=== PATIENT | male | born 1975 | race African-American/Black ===

== ENCOUNTER 2018-06-22 14:10 | Emergency (ER) | payer SELFPAY ==
[~2018-06-22] VITALS: Ht 185.4 cm; Wt 181.4 kg
[~2018-06-22 14:10] MED LIST: ACCUNEB0.63 MG/3 INH; BOUDREAUXS113 GM TP; COREG12.5 MG PO; EPOGEN4000 U/ML SQ; K-DUR20 MEQ PO; MAG-OXIDE400 MG PO; NYSTATIN ORAL SU5 ML PO; PEPCID20 MG PO; SALAGEN5 MG PO; SEROQUEL100 MG PO; [UNRECOGNIZED DRUG - OTHER] PO
[2018-06-22 14:19] VITALS: Ht 185.4 cm; Wt 181.4 kg
[2018-06-22 16:17] LABS: BASOPHILS 0.1 % (0-2); EOSINOPHILS 2.3 % (0-7); HEMATOCRIT 37.3 % (42.0-54.0); HEMOGLOBIN 12.1 g/dL (13.5-17.5); IMMATURE GRANULOCYTES 0.1 % (0-5); MCH 28.1 pg (26.0-34.0); MCHC 32.4 g/dL (31.0-37.0); MCV 86.5 fL (80.0-100.0); MEAN PLATELET VOLUME 10.2 fL (7.4-10.4); MONOCYTES 6.9 % (2-11); NEUTROPHILS 64.6 % (40-80); PLATELET COUNT 279 10x3/uL (130-400); RBC 4.31 10x6/uL (4.20-6.10); RDW 12.7 % (11.5-14.5); WBC 7.8 10x3/uL (4.8-10.8)
[2018-06-22 16:37] LABS: ALBUMIN 3.2 g/dL (3.4-5.0); ALKALINE PHOSPHATASE 44 U/L (46-116); ALT (SGPT) 27 U/L (10-68); BILIRUBIN - TOTAL 0.31 mg/dL (0.2-1.3); CALC OSMOLALITY 285 mosm/kg (275-300); CALCIUM 8.7 mg/dL (8.5-10.1); CARBON DIOXIDE 32.5 mmol/L (21.0-32.0); CHLORIDE - SERUM 104 mmol/L (98-107); CREATININE - SERUM 0.9 mg/dL (0.6-1.3); GLUCOSE 85 mg/dL (74-106); POTASSIUM - SERUM 4.4 mmol/L (3.5-5.1); PROTEIN - SERUM 7.9 g/dL (6.4-8.2); SODIUM 143 mmol/L (136-145); UREA NITROGEN 18 mg/dL (7-18); eGFR NON AFRICAN AMERICAN > 90 mL/min (90-120)
[2018-06-22 16:46] LABS: PRO BNP 153 pg/mL (0-125)
[2018-06-22] MEDS ORDERED: MUPIROCIN22 GM TOPICAL (17:32)
[2018-06-22] MEDS ORDERED: LASIX20 MG PO (17:32)
[2018-06-22 18:38] VITALS: BP 163/99
== END 2018-06-22 18:39 | disposition home or self-care (01) ==
LOC: D.ER 14:10
PROVIDERS: Family Medicine
DX: R60.0 Localized edema (principal); Z86.79 Personal history of other diseases of the circulatory system; I10 Essential (primary) hypertension

== ENCOUNTER 2018-06-26 16:25 | Emergency (ER) | payer SELFPAY ==
[~2018-06-26] VITALS: Ht 185.4 cm; Wt 181.8 kg
[~2018-06-26 16:25] MED LIST changes: +LASIX20 MG PO; +MUPIROCIN22 GM TOPICAL
[2018-06-26 16:29] VITALS: Ht 185.4 cm; Wt 181.8 kg
[2018-06-26] MEDS ORDERED: NORVASC10 MG PO (18:17)
[2018-06-26 19:03] VITALS: BP 170/92
== END 2018-06-26 19:03 | disposition home or self-care (01) ==
LOC: D.ER 16:25
DX: I10 Essential (primary) hypertension (principal); Z91.14 Patient's other noncompliance with medication regimen

== ENCOUNTER → 2018-07-14 16:23 | Outpatient (CLI) | payer SELFPAY ==
[2018-06-26 16:29] VITALS: BMI 52.8
[~2018-07-14 16:23] MED LIST changes: +NORVASC10 MG PO
== END | disposition home or self-care (01) ==
LOC: D.US 16:00
DX: R60.0 Localized edema (principal)

== ENCOUNTER 2019-04-23 14:52 | Emergency (ER) | payer SELFPAY ==
[~2019-04-23] VITALS: Ht 185.4 cm; Wt 140.9 kg
[2019-04-23 14:58] VITALS: Ht 185.4 cm; Wt 140.9 kg
[2019-04-23] MEDS ORDERED: VOLTAREN75 MG PO (16:02)
[2019-04-23 16:05] VITALS: BP 154/89
== END 2019-04-23 16:11 | disposition home or self-care (01) ==
LOC: D.ER 14:52
DX: M77.9 Enthesopathy, unspecified (principal)

== ENCOUNTER → 2019-09-21 08:59 | Outpatient (CLI) | payer MEDICAID ==
[2019-08-15 13:56] VITALS: BMI 51.2
[~2019-09-21 08:59] MED LIST changes: +ALBUTEROL SULF8.5 GM INH; +CYCLOBENZAPRINE10 MG PO; +LISINOPRIL20 MG PO; +VOLTAREN75 MG PO
== END | disposition home or self-care (01) ==
LOC: D.RT 08:59
PROVIDERS: ATTEND Family Medicine
DX: R06.00 Dyspnea, unspecified (principal)

== ENCOUNTER 2020-02-01 15:55 | Emergency (ER) | payer MEDICAID ==
[~2020-02-01] VITALS: Ht 185.4 cm; Wt 181.8 kg
[2020-02-01 16:34] VITALS: Ht 185.4 cm; Wt 181.8 kg
[2020-02-01 17:18] LABS: BASOPHILS 0.1 % (0-2); EOSINOPHILS 1.6 % (0-7); HEMATOCRIT 46.4 % (42.0-54.0); HEMOGLOBIN 14.5 g/dL (13.5-17.5); IMMATURE GRANULOCYTES 0.2 % (0-5); LYMPHOCYTES 14.7 % (15-50); MCH 28.9 pg (26.0-34.0); MCHC 31.3 g/dL (31.0-37.0); MCV 92.6 fL (80.0-100.0); MEAN PLATELET VOLUME 9.9 fL (7.4-10.4); MONOCYTES 6.9 % (2-11); NEUTROPHILS 76.5 % (40-80); PLATELET COUNT 260 10x3/uL (130-400); RBC 5.01 10x6/uL (4.20-6.10); RDW 14.4 % (11.5-14.5); WBC 9.9 10x3/uL (4.8-10.8)
[2020-02-01 17:28] LABS: ANION GAP 6.6 mmol/L (8-16); CALCIUM 8.5 mg/dL (8.5-10.1); CARBON DIOXIDE 36.6 mmol/L (21.0-32.0); CREATININE - SERUM 1.2 mg/dL (0.6-1.3); POTASSIUM - SERUM 4.2 mmol/L (3.5-5.1)
[2020-02-01 17:33] LABS: ALBUMIN 2.8 g/dL (3.4-5.0); BILIRUBIN - TOTAL 0.75 mg/dL (0.2-1.3); PROTEIN - SERUM 6.8 g/dL (6.4-8.2)
[2020-02-01 20:51] LABS: BILIRUBIN NEGATIVE (NEGATIVE); GLUCOSE NEGATIVE (NEGATIVE); KETONE NEGATIVE (NEGATIVE); NITRITE NEGATIVE (NEGATIVE); UROBILINOGEN NORMAL (NORMAL)
[2020-02-01] MEDS ORDERED: CHRONULAC30 ML PO (20:53)
[2020-02-01 21:28] VITALS: BP 171/96
== END 2020-02-01 21:13 | disposition home or self-care (01) ==
LOC: D.ER 15:55
PROVIDERS: Emergency Medicine; Family Medicine
DX: K59.00 Constipation, unspecified (principal); I10 Essential (primary) hypertension; R10.9 Unspecified abdominal pain